=== PATIENT | male | born 1970 | race Caucasian/White ===

== ENCOUNTER → 2023-09-25 15:54 | Outpatient (REF) | payer OTHER, SELFPAY | LOC: DHCBC HW 15:54 | PROVIDERS: ATTENDING PHYSICIAN Internal Medicine; FAMILY PHYSICIAN Internal Medicine | DX: I25.10 Atherosclerotic heart disease of native coronary artery without angina pectoris (principal); I20.1 Angina pectoris with documented spasm; Q24.5 Malformation of coronary vessels; I45.10 Unspecified right bundle-branch block | CPT/HCPCS: 93306 ==